=== PATIENT | male | born 1995 | race Two or more races ===

== ENCOUNTER 2025-04-19 21:10 | Emergency (ER) | payer OTHER ==
[~2025-04-19] VITALS: Ht 188 cm; Wt 77.1 kg
[2025-04-19] MEDS ORDERED: TRAMADOL HCL 50 MG TABLET PO ONE (21:30)
[2025-04-19] MEDS ORDERED: TRAMADOL HCL E100 M1 PO (21:46)
== END 2025-04-19 23:02 | disposition home or self-care (01) ==
LOC: ER 21:10
DX: S42.001A Fracture of unspecified part of right clavicle, initial encounter for closed fracture (principal); Y93.61 Activity, american tackle football; Y93.89 Activity, other specified; Y92.89 Other specified places as the place of occurrence of the external cause